=== PATIENT | female | born 1990 | race Two or more races ===

== ENCOUNTER 2017-02-21 14:31 | Emergency (ER) | payer MEDICAID, OTHER ==
[~2017-02-21] VITALS: Ht 149.9 cm; Wt 64.0 kg
[2017-02-21] MEDS ORDERED: Levothyroxine 125mcg tab ORAL STA (14:46)
--- NOTE | 2017-02-21 14:46 | Emergency Room Report ---
History of Present Illness General Chief Complaint: Medical Clearance Source: Patient Present Illness [facility] here for prebook. on thyroid. Needs to get Rx. No fevers, palpitations, NVD, weakness, tremor, dyauria. Not . No joint pain. Not suicidal. Allergies: Coded Allergies: LATEX (Verified Allergy, Unknown, 02/21/17) Patient History Past Medical History: see triage record Social History: Reports: smoking Social History Narrative in custody Last Menstrual Period: 02/19/17 Now: No Reviewed Nursing Documentation: PMH: Agreed, PSxH: Agreed Review of Systems All Other Systems: negative except mentioned in HPI Physical Exam Vital Signs Date Time Temp Pulse Resp B/P Pulse Ox O2 Delivery O2 Flow Rate FiO2 02/21/17 14:34 98.4 89 15 106/53 99 Room Air Sp02 EP Interpretation: reviewed, normal General Appearance: well appearing, no apparent distress, GCS 15 Head: normocephalic, atraumatic Eyes: bilateral eye normal inspection, bilateral eye PERRL ENT: hearing grossly normal, normal voice, moist mucus membranes Neck: full range of motion, supple, other - thyroid normal Respiratory: no respiratory distress, speaking full sentences Cardiovascular #1: regular rate, rhythm Gastrointestinal: normal inspection Musculoskeletal: normal inspection, back normal, gait/station normal Neurologic: alert, oriented x3, DTRs symmetric, normal gait Psychiatric: mood/affect normal Skin: no rash Medical Decision Making Diagnostic Impression: Primary Impression: Status post thyroidectomy Additional Impression: Medication refill ER Course Patient needs thyroid. Given and rx. Euthyroid by exam. Patient stable for outpatient observation and treatment. Last Vital Signs Date Time Temp Pulse Resp B/P (MAP) Pulse Ox O2 Delivery O2 Flow Rate FiO2 02/21/17 15:07 98.4 82 15 106/53 99 Room Air Status: improved Disposition: D/C TO [facility] IN [facility]UST Condition: Stable Scripts Levothyroxine Sodium* (SYNTHROID*) 125 Mcg Tablet 125 MCG ORAL DAILY, #20 TAB 1 Refill Take in the morning on an empty stomach, at least 30 minutes before food. Prov: Sarmad Johnson M.D. 02/21/17 Sarmad Johnson M.D. Feb 21, 2017 14:46
[2017-02-21] MEDS ORDERED: SYNTHROID125 MCG ORAL (14:50)
[2017-02-21 15:04] VITALS: BP 106/53
[2017-02-21 15:07] VITALS: BP 106/53
== END 2017-02-21 15:09 ==
LOC: EMR 15:00
DX: Z76.0 Encounter for issue of repeat prescription (principal); Z91.040 Latex allergy status; F17.200 Nicotine dependence, unspecified, uncomplicated; Z98.890 Other specified postprocedural states
CPT/HCPCS: 99283